=== PATIENT | male | born 1990 | race Caucasian/White ===

== ENCOUNTER 2016-12-30 00:19 | Observation (INO) ==
[2016-12-30] MEDS ORDERED: Ketorolac 30 MG/ML VIAL IVP ONE (01:21)
[2016-12-30 01:26] LABS: Basophils % 0.5 %; Eosinophils # 0.2 K/mcL (0.0-0.6); Eosinophils % 2.1 %; Hematocrit 44.7 % (37.5-50.1); Hemoglobin 15.2 g/dL (12.9-16.9); Immature Granulocytes % 0.4 % (0-4); Lymphocytes % 36.4 %; Mean Corpuscular Hemoglobin 30.3 pg (28.0-33.3); Mean Platelet Volume 12.1 fL (9.4-12.4); Monocytes # 0.4 K/mcL (0.0-1.3); Monocytes % 5.3 %; Neutrophils # 4.5 K/mcL (1.6-8.9); Platelet Count 175 K/mcL (140-400); Red Blood Count 5.02 M/mcL (4.19-5.50); Red Cell Distribution Width 12.6 % (11.5-14.5); Segmented Neutrophils % 55.3 %
[2016-12-30] MEDS ORDERED: Ketorolac 15 MG/ML VIAL ONE (01:33)
[2016-12-30 01:35] LABS: BUN/Creatinine Ratio 17 (6-26); Blood Urea Nitrogen 18 mg/dL (8-26); Calcium 9.3 mg/dL (8.6-10.8); Carbon Dioxide 27 mEq/L (19-29); Chloride 103 mEq/L (98-109); Glucose 102 mg/dL (70-99); Osmolality,Calculated 294 (280-300); Potassium 3.9 mEq/L (3.5-4.5); Sodium 141 mEq/L (136-145); eGFR For African Americans > 60 (> 60); eGFR For Non-African Americans > 60 (> 60)
--- NOTE | 2016-12-30 01:37 | Emergency Department Note ---
Disposition Clinical Impression: Appendicitis Disposition: Admitted As Inpatient Condition: Good Abdominal Pain HPI - General Chief Complaint: ED Abdominal Pain Stated Complaint: ABD Pain Time Seen by Provider: 12/30/16 00:54 Source: patient Mode of arrival: ambulatory Nursing Notes Reviewed: Yes Vital Signs Reviewed: Yes - History of Present Illness HPI Narrative: 26-year-old male with no pole or surgical history presents with 2 days of abdominal pain with nausea, vomiting, and diarrhea that remitted earlier today. He was seen in the emergency department yesterday for symptoms received 8 mg of Zofran with resolution of his nausea and vomiting and was sent home without further testing. He has had chills without fever. His pain was initially more diffuse, but now is more localized in the right lower quadrant and occasionally radiates into his groin. He does not have any back pain or flank pain. He has a poor appetite today. He has no sick contacts. He is not on any medicine at home other than Zofran. Pain Scale: 7 - Related Data Previous Rx's Medication Instructions Recorded Docusate [Colace] 100 mg PO BID #30 capsule 01/01/17 OxyCODONE/APAP 5/325 [Percocet 1 each PO Q4HR PRN #30 tablet 01/01/17 5/325 MG] Allergies Allergy/AdvReac Type Severity Reaction Status Date / Time Hydromorphone [From Dilaudid] Allergy Itching Verified 12/30/16 12:42 All systems ED: reviewed and negative except as stated. Abdominal Pain PMH - Past Medical History Medical history: Reports: no medical history, other Male Surgical History: Reports: orthopedic, other Psychiatric history: Reports: no psych history - Social History Smoking status: Current every day smoker Alcohol use: Reports: rarely Drug use: Reports: none Physical Exam - Head Head exam: atraumatic, normocephalic, normal inspection - Eye Eye exam: Present: normal appearance, PERRL, EOMI - ENT ENT exam: normal exam, normal oropharynx, mucous membranes moist - Neck Neck exam: Present: normal inspection, full ROM, trachea midline - Chest Chest inspection: Present: normal inspection, symmetric chest wall rise - Respiratory Respiratory exam: Clear to auscultation bilaterally without wheezes rales or rhonchi Cardiovascular Cardiovascular exam: Present: regular rate, normal rhythm, normal heart sounds - Abdominal Exam Abdomen is soft without rigidity or rebound tenderness. There is well localized right lower quadrant tenderness. Rovsing sign is negative. McBurney sign and obturator sign are positive. - Extremities Exam Extremities exam: Present: normal inspection, full ROM - Back Exam Back exam: Present: normal inspection, full ROM. Absent: tenderness, CVA tenderness (R), CVA tenderness (L) - Neurological Exam Neurological exam: Present: alert, oriented X3, CN II-XII intact - Psychiatric Psychiatric exam: Present: normal affect, normal mood - Skin Skin exam: Present: warm, dry, intact, normal color - General Limitations: no limitations General appearance: alert, in no apparent distress Course - Reevaluation(s) Reevaluation #1: Equivocal CT scan for appendicitis. Patient will need observation and further evaluation. Accepted by Dr. Guzman for further management. Vital Signs Temperature 98.0 F 12/30/16 00:27 Pulse Rate 67 12/30/16 00:27 Respiratory Rate 18 12/30/16 00:27 Blood Pressure 108/69 12/30/16 00:27 O2 Sat by Pulse Oximetry 96 12/30/16 00:27 Temperature 97.8 F 01/01/17 11:05 Pulse Rate 59 01/01/17 12:37 Respiratory Rate 14 01/01/17 12:37 Blood Pressure 116/75 01/01/17 12:37 O2 Sat by Pulse Oximetry 96 01/01/17 12:37 Oxygen Delivery Oxygen Delivery Room Air Abdominal Pain - Lab Data Result diagrams: 01/01/17 03:53 12/30/16 00:50 Lab Results 12/30/16 12/30/16 Range/Units 00:50 00:50 WBC 8.2 (4.3-11.1) K/mcL RBC 5.02 (4.19-5.50) M/mcL Hgb 15.2 (12.9-16.9) g/dL Hct 44.7 (37.5-50.1) % MCV 89.0 (83.0-100.0) fL MCH 30.3 (28.0-33.3) pg MCHC 34.0 (31.6-35.5) g/dL RDW 12.6 (11.5-14.5) % Plt Count 175 (140-400) K/mcL MPV 12.1 (9.4-12.4) fL Immature Gran % 0.4 (0-4) % Seg Neutrophils % 55.3 % Lymphocytes % 36.4 % Monocytes % 5.3 % Eosinophils % 2.1 % Basophils % 0.5 % Neutrophils # 4.5 (1.6-8.9) K/mcL Lymphocytes # 3.0 (0.6-4.6) K/mcL Monocytes # 0.4 (0.0-1.3) K/mcL Eosinophils # 0.2 (0.0-0.6) K/mcL Basophils # 0.0 (0.0-0.2) K/mcL Sodium 141 (136-145) mEq/L Potassium 3.9 (3.5-4.5) mEq/L Chloride 103 (98-109) mEq/L Carbon Dioxide 27 (19-29) mEq/L BUN 18 (8-26) mg/dL Creatinine 1.03 (0.72-1.25) mg/dL Est GFR ( Amer) > 60 (> 60) Est GFR (Non-Af Amer) > 60 (> 60) BUN/Creatinine Ratio 17 (6-26) Glucose 102 H (70-99) mg/dL Calculated Osmolality 294 (280-300) Calcium 9.3 (8.6-10.8) mg/dL Attestation Statement - Attestation Attestation: I examined this patient and my medical decision-making was reviewed with the Resident Physician. I agree with the documented findings, disposition and treatment plan as described except to the extent set forth below. Significant difference in exam compared to my prior evaluation. Now has marked tenderness, most prominent in RLQ. On last eval, he had no tenderness, had some crampy discomfort that started well after onset of vomiting and diarrhea. Now looks somewhat ill but non-toxic, marked change in abdominal exam. CT equivocal. Discussed with surgeon. Atypical story for appendicitis, concerning exam, equivocal CT. I recommended admission and observation, evaluation by surgeon in AM and serial exams as opposed to going to the OR now, surgeon agreed.
[2016-12-30] MEDS ORDERED: Ketorolac 30 MG/ML VIAL ONE (01:38)
[2016-12-30] MEDS ORDERED: *HR* Morphine 2 MG/ML SYRINGE IVP STA (01:58)
[2016-12-30] MEDS ORDERED: Ondansetron 4 MG/2 ML VIAL IVP STA (01:59)
[2016-12-30] MEDS ORDERED: *HR* Morphine 2 MG/ML SYRINGE ONE (02:05)
[2016-12-30] MEDS ORDERED: Ondansetron 4 MG/2 ML VIAL ONE (02:05)
[2016-12-30] MEDS ORDERED: cefOXitin 2,000 MG in D5% in Water (Mini-Bag+) 100 ML IVPB ONE (03:22)
[2016-12-30] MEDS ORDERED: 0.9 % Sodium Chloride 2,000 ML IVC ONE (03:23)
[2016-12-30] MEDS ORDERED: *HR* HYDROmorphone 2 MG/ML SYRINGE IVP PRN (04:50)
[2016-12-30] MEDS ORDERED: Ondansetron 4 MG/2 ML VIAL IVP PRN (05:23)
[2016-12-30] MEDS: 0.9 % Sodium Chloride 1,000 ML IVC SCH ×2 (05:33→19:37)
[2016-12-30] MEDS ORDERED: Ondansetron 4 MG/2 ML VIAL IVP SCH (08:00)
--- NOTE | 2016-12-30 10:31 | General Surg History&Physical ---
Date of Encounter: 12/30/16 Time of Encounter: 10:00 Assessment and Plan (1) Abdominal pain Current Visit: Yes Status: Acute The assessment and plan as outlined above was discussed with the patient and/or family members who expressed understanding and agreement. All questions were answered. RLQ abdominal pain of uncertain etiology CT shows dilated appendix without surrounding inflammation Will review with Dr. Guzman and discuss plan moving forward NPO IV fluids Supportive care/pain control Serial abdominal exams Qualifiers: Abdominal location: right lower quadrant Qualified Code(s): R10.31 - Right lower quadrant pain (2) Tobacco abuse Current Visit: Yes Status: Acute The assessment and plan as outlined above was discussed with the patient and/or family members who expressed understanding and agreement. All questions were answered. Smoking cessation education Offered nicotine patch- patient states that they break him out (3) DVT prophylaxis Current Visit: Yes Status: Acute The assessment and plan as outlined above was discussed with the patient and/or family members who expressed understanding and agreement. All questions were answered. Ambulate hallways TID History of Present Illness Chief complaint: Abdominal pain HPI: Mr. Mae is a 26 year old male with no significant past medical history. He states that he initially has diarrhea with associated nausea/vomiting 2 days ago. He reports multiple episodes of vomiting without hematemesis of coffee ground emesis. He reported to the ED and was evaluated and released. He states that he had onset of RLQ abdominal pain yesterday which was constant. The pain does radiate into his groin at times. He has never experienced pain like this in the past. He does not have an appetite. Denies any fevers/chills. Denies any difficulty with urination. Denies any chest pain or shortness of breath. He has had a CT scan which shows dilation of the appendix without surrounding inflammatory changes. We have admitted the patient for further work-up and treatment. Past Med Surg Social Fam HX - Past Medical History Source: patient Medical history: no medical history, other Psychiatric history: no psych history - Past Surgical History Surgical History: other (left knee surgery) - Social History Smoking Status: Current every day smoker Packs per day: 1PPD Smokeless Tobacco Status: No Alcohol use: rarely Drug use: none Current living situation: Home - Independent Activity Level: Independent ambulation - Family History Mother History Unknown: Yes Adopted: [place]: Enrike Hwang Jr Age: 51 Family Member Ethnicity: Non- Living Status: Still Living Hx Family Cardiac Disorders: No Hx Family Respiratory Disorders: No Hx Family Cancer: No Hx Family GI Disorders: No Hx Family Genitourinary Disorders: No Hx Family Endocrine Disorder: Yes (Both sides of family) Hx Family Musculoskeletal Disorders: Yes (Artheritis carple tunnel on Father's side.) Hx Family Neuromuscular Disorders: No Hx Family Neurologic Disorders: No Hx Family HEENT Disorders: No Hx Family Autoimmune Disorders: No Hx Family Reproductive Disorders: No Hx Family Psychosocial Disorders: Yes (Father's side) Father History Unknown: Yes Adopted: [place]: Enrike Hwang Jr Age: 51 Family Member Ethnicity: Non- Living Status: Still Living Hx Family Cardiac Disorders: No Hx Family Respiratory Disorders: No Hx Family Cancer: No Hx Family GI Disorders: No Hx Family Genitourinary Disorders: No Hx Family Endocrine Disorder: Yes (Both sides of family) Hx Family Musculoskeletal Disorders: Yes (Artheritis carple tunnel on Father's side.) Hx Family Neuromuscular Disorders: No Hx Family Neurologic Disorders: No Hx Family HEENT Disorders: No Hx Family Autoimmune Disorders: No Hx Family Reproductive Disorders: No Hx Family Psychosocial Disorders: Yes (Father's side) Medications and Allergies No Known Home Drugs 12/30/16 [History] Allergies No Known Allergies Allergy (Verified 12/30/16 00:27) Review of Systems All systems PM: reviewed and no additional remarkable complaints except as stated (in the HPI) All systems PM: A 10-system review of systems was performed and is negative for pertinent findings except as documented above in the HPI. General Surgery Exam Initial Vital Signs Temp Pulse Resp BP Pulse Ox 98.0 F 67 18 108/69 96 12/30/16 00:27 12/30/16 00:27 12/30/16 00:27 12/30/16 00:27 12/30/16 00:27 Results - Labs 12/30/16 00:50 12/30/16 00:50 Abnormal lab results Glucose 102 mg/dL (70-99) H 12/30/16 00:50 All other labs normal. - Imaging CT scan - abdomen: report reviewed CT scan - pelvis: report reviewed Additional studies: Abdomen/Pelvis CT 12/30/16 01:20 IMPRESSION: The appendix is retrocecal and dilated though there is no definite inflammatory stranding. Early/mild appendicitis cannot be excluded. D/ / Dagoberto Bunch MD / Dagoberto Bunch MD Interpreting Provider: Dagoberto Bunch MD - Attending Attestation I examined this patient and my medical decision-making was reviewed with the FIELD CASE MANAGER/PA/Advanced Practice Nurse/Resident Physician. I agree with the documented findings, disposition and treatment plan as described except to the extent set forth below.
[2016-12-30] MEDS ORDERED: Naloxone 0.4 MG/ML INJ IVP PRN (10:37)
[2016-12-30] MEDS ORDERED: *HR* HYDROmorphone (PF) 1 MG/ML SYRINGE IVP PRN (10:38)
[2016-12-30] MEDS: cefOXitin 2,000 MG in D5% in Water (Mini-Bag+) 100 ML IVPB SCH (15:21)
[2016-12-30] MEDS: *HR* OxyCODONE/APAP 5/325 TABLET PO PRN (19:37)
[2016-12-30] MEDS: *HR* HYDROmorphone (PF) 1 MG/ML SYRINGE IVP PRN (21:43)
[2016-12-31] MEDS: cefOXitin 2,000 MG in D5% in Water (Mini-Bag+) 100 ML IVPB SCH ×4 (01:25→23:23)
[2016-12-31] MEDS: 0.9 % Sodium Chloride 1,000 ML IVC SCH (08:25)
--- NOTE | 2016-12-31 09:11 | General Surgery Progress Note ---
<Layo Stout - Last Filed: 12/31/16 11:34> Date of Encounter: 12/31/16 Time of Encounter: 08:30 - Assessment and Plan (1) Abdominal pain Current Visit: Yes Status: Acute RLQ pain secondary to appendicitis. Dr. Sellers called radiology to have a second read of the imaging, which was read as being appendicitis. Continue regular diet. Continue IV cefoxitin Day #2 Continue IV fluids. Pain and nausea control as needed. Qualifiers: Abdominal location: right lower quadrant Qualified Code(s): R10.31 - Right lower quadrant pain (2) Tobacco abuse Current Visit: Yes Status: Acute Patient denied wanting patches. (3) DVT prophylaxis Current Visit: Yes Status: Acute Ambulate halls TID Subjective Patient reports: no new complaints, voiding w/o difficulty, flatus, no bowel movement Narrative: The patient reports that he is no longer having diarrhea, and has not had any bowel movements in the last 2 days. He is tolerating a regular diet will and did not report any nausea or vomiting during his dinner last night, which is when he last ate. He states he is not having any pain at this time. Objective Vital Signs - Last 8 Hours Temp Pulse Resp BP Pulse Ox 12/31/16 07:00 96 12/31/16 06:45 97.6 F 58 16 101/65 96 12/31/16 03:39 97.7 F 49 17 96/60 96 Intake and Output 12/30/16 12/31/16 12/31/16 23:59 07:59 15:59 Intake Total 1100 / 1100 100 / 100 1000 / 1000 Balance 1100 / 1100 100 / 100 1000 / 1000 Intake: IV Fluids 1100 / 1100 100 / 100 1000 / 1000 0.9 % Sodium Chloride 1, 1000 / 1000 1000 / 1000 000 ML @ 70 mls/hr IVC . [id number] ADDIE Rx#: [id number] Mefoxin 2,000 MG In 100 / 100 100 / 100 Dextrose 5% (Minibag+) 100 ML 100 ML @ 200 mls/ hr IVPB Q8HR ADDIE Rx#: [id number] Other: Weight 75.75 kg Patient Weight 12/31/16 23:59 Weight 75.75 kg - General physical appearance well developed, well nourished, no distress - Eyes normal ocular movement - ENT normal mucosa, atraumatic, normocephalic - Neck Neck exam: trachea midline - Respiratory normal respiratory effort, clear to auscultation - Cardiovascular Cardiovascular exam: Present: RRR - Abdomen Abdomen: Present: bowel sounds present, soft Abdominal Tenderness: RLQ (tenderness to moderate palpation without guarding or rebound.) - Integumentary no rash - Neurologic CN 2-12 grossly intact - Musculoskeletal normal posture - Psychiatric oriented to time, oriented to person, oriented to place, speech is normal, memory intact - Labs 12/30/16 00:50 12/30/16 00:50 Consult Discharge Plan - Plan Referrals: NO,PCP [Primary Care Provider] - - Attending Attestation I examined this patient and my medical decision-making was reviewed with the WATCH AND CLOCK REPAIR CLERK/PA/Advanced Practice Nurse/Resident Physician. I agree with the documented findings, disposition and treatment plan as described except to the extent set forth below. <Colette Sellers - Last Filed: 12/31/16 12:36> Date of Encounter: 12/31/16 Time of Encounter: 12:00 - Assessment and Plan (1) Abdominal pain Current Visit: Yes Status: Acute patients pain is improving, even if he had an appendicitis it can be treated and resolved with abx he only had diarrhea wed and no further bms since then he denies nausea, abdominal pain almost resolved, significantly improved he isnt eating much due to concern that he will get crampy pain, we discussed him eating his regular lunch and seeing what happens, if tolerates will dc with abx and f/u with Dr Guzman in 2 weeks. Qualifiers: Abdominal location: right lower quadrant Qualified Code(s): R10.31 - Right lower quadrant pain (2) Tobacco abuse Current Visit: Yes Status: Acute (3) Diarrhea Current Visit: No Status: Acute check stool culture Qualifiers: Diarrhea type: unspecified type Qualified Code(s): R19.7 - Diarrhea, unspecified (4) Nausea & vomiting Current Visit: No Status: Resolved prn antiemetics,currently no issues Qualifiers: Vomiting type: unspecified Vomiting Intractability: unspecified Qualified Code(s): R11.2 - Nausea with vomiting, unspecified Subjective Narrative: pain is improved but still present, no nausea or emesis. no diarrhea since wed, no bm since wed pt states hasnt eaten much because he is afraid to get the crampy abdominal pain Objective Vital Signs - Last 8 Hours Temp Pulse Resp BP Pulse Ox 12/31/16 11:20 97.8 F 67 16 101/63 97 12/31/16 07:00 96 12/31/16 06:45 97.6 F 58 16 101/65 96 Intake and Output 12/30/16 12/31/16 12/31/16 23:59 07:59 15:59 Intake Total 1100 / 1100 100 / 100 1000 / 1000 Balance 1100 / 1100 100 / 100 1000 / 1000 Intake: IV Fluids 1100 / 1100 100 / 100 1000 / 1000 0.9 % Sodium Chloride 1, 1000 / 1000 1000 / 1000 000 ML @ 70 mls/hr IVC . [id number] ADDIE Rx#: [id number] Mefoxin 2,000 MG In 100 / 100 100 / 100 Dextrose 5% (Minibag+) 100 ML 100 ML @ 200 mls/ hr IVPB Q8HR ADDIE Rx#: [id number] Other: Weight 75.75 kg Patient Weight 12/31/16 23:59 Weight 75.75 kg - General physical appearance well developed, well nourished, no distress - Eyes PERRL, normal ocular movement - ENT normal mucosa, normocephalic - Neck Neck exam: trachea midline - Respiratory normal expansion - Cardiovascular Cardiovascular exam: Present: RRR - Abdomen Abdomen: Present: soft, tender. Absent: distended, guarding, rebound Abdominal Tenderness: RLQ - Integumentary no rash, no growths - Neurologic CN 2-12 grossly intact - Musculoskeletal normal posture - Psychiatric oriented to time, oriented to person, memory intact - Labs 12/30/16 00:50 12/30/16 00:50
[2016-12-31] MEDS: *HR* OxyCODONE/APAP 5/325 TABLET PO PRN ×2 (13:53→20:47)
[2016-12-31] MEDS: *HR* HYDROmorphone (PF) 1 MG/ML SYRINGE IVP PRN ×2 (17:18→22:33)
[2016-12-31] MEDS ORDERED: Pantoprazole 40 MG VIAL IVP SCH (17:45)
[2017-01-01] MEDS: *HR* HYDROmorphone (PF) 1 MG/ML SYRINGE IVP PRN (01:21)
[2017-01-01] MEDS: 0.9 % Sodium Chloride 1,000 ML IVC SCH (01:50)
[2017-01-01 04:24] LABS: Basophils % 0.6 %; Eosinophils # 0.2 K/mcL (0.0-0.6); Hematocrit 38.5 % (37.5-50.1); Immature Granulocytes % 0.2 % (0-4); Lymphocytes # 2.7 K/mcL (0.6-4.6); Lymphocytes % 40.7 %; Mean Corpuscular HGB Conc 33.8 g/dL (31.6-35.5); Mean Corpuscular Volume 91.7 fL (83.0-100.0); Mean Platelet Volume 11.8 fL (9.4-12.4); Monocytes # 0.5 K/mcL (0.0-1.3); Monocytes % 7.1 %; Neutrophils # 3.2 K/mcL (1.6-8.9); Platelet Count 142 K/mcL (140-400); Red Cell Distribution Width 12.5 % (11.5-14.5); Segmented Neutrophils % 48.4 %
[2017-01-01] MEDS ORDERED: CefOXitin 1,000 MG VIAL ONE (07:15)
[2017-01-01] MEDS ORDERED: Albuterol 2.5 MG/3 ML NEBULIZER IH ONE (07:15)
--- NOTE | 2017-01-01 07:18 | Anesthesia Evaluation PreOp ---
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 Any Significant HX Other Medical History: Denies Any Significant HX Anesthesia History: No Prior Anesthetic Complications Alcohol Use: rarely Drug use: none Medications and Allergies No Known Home Drugs 12/30/16 [History] Allergies Hydromorphone [From Dilaudid] Allergy (Verified 12/30/16 12:42) Itching - Meds/Allergy Pre-op Review Medications Reviewed: Yes Allergies Reviewed: Yes Beta Blockers on Current Med List: No Anesthesia Results - Labs 01/01/17 03:53 12/30/16 00:50 Anesthesia Exam O2 Sat Weight 76.2 kg O2 Sat by Pulse Oximetry 97 O2 Sat by Pulse Oximetry 97 O2 Sat by Pulse Oximetry 97 O2 Sat by Pulse Oximetry 97 O2 Sat by Pulse Oximetry 97 O2 Sat by Pulse Oximetry 97 Vital Signs Temp Pulse Resp BP Pulse Ox 98.0 F 67 18 108/69 96 12/30/16 00:27 12/30/16 00:27 12/30/16 00:27 12/30/16 00:27 12/30/16 00:27 Height: 5'8 Weight: 167 lbs NPO (# of Hours): MN Pain Scale: 1 - HEENT Mallampati: II Teeth: Normal Oral Opening: Greater than 3 - GENERAL ENGINEERING TEACHER LOC: Oriented GENERAL ENGINEERING TEACHER Motor: Normal RUE, Normal LUE, Normal RLE, Normal LLE, Normal Face GENERAL ENGINEERING TEACHER Sensory: Normal: RUE, LUE, RLE, LLE, Face - Cardiac Rhythm: Regular Murmur: None JVD: No Carotid Bruit: No - Pulmonary Breath Sounds: bilateral Clear Respiratory Effort: Symmetrical Anesthesia Assess/Plan ASA Score: 2 Modified [place] Scale for Level of Consciousness: Cooperative, oriented, and tranquil Anesthetic Plan: General Monitoring Plan: Standard Monitors Recovery Plan: PACU (Discussed GA, agrees to proceed)
[2017-01-01] MEDS ORDERED: Dexamethasone 4 MG/ML VIAL ONE (07:24)
[2017-01-01] MEDS ORDERED: *HR* Propofol 200 MG/20 ML VIAL IVP ONE ×2 (07:24→08:42)
[2017-01-01] MEDS ORDERED: *HR* Midazolam HCl 2 MG/2 ML VIAL ONE (07:24)
[2017-01-01] MEDS ORDERED: *HR* Rocuronium Bromide 50 MG/5 ML VIAL ONE (07:24)
[2017-01-01] MEDS ORDERED: Lidocaine -MPF 2% 2 ML VIAL ONE (07:24)
[2017-01-01] MEDS ORDERED: *HR* FentaNYL (PF) 100 MCG/2 ML VIAL ONE ×2 (07:24→08:41)
[2017-01-01] MEDS ORDERED: Ondansetron 4 MG/2 ML VIAL ONE ×2 (07:24→09:30)
[2017-01-01] MEDS ORDERED: Lidocaine -MPF 4% 5 ML AMPUL ONE (07:26)
[2017-01-01] MEDS ORDERED: CefOXitin 2,000 MG VIAL IVPB ONE (08:14)
[2017-01-01] MEDS: cefOXitin 2,000 MG in D5% in Water (Mini-Bag+) 100 ML IVPB SCH (08:30)
[2017-01-01] MEDS ORDERED: Neostigmine Methylsulfate 3 MG/3 ML SYRINGE ONE (08:57)
[2017-01-01] MEDS ORDERED: *HR* HYDROmorphone (PF) 1 MG/ML SYRINGE IVP PRN (09:02)
[2017-01-01] MEDS ORDERED: Ketorolac 30 MG/ML VIAL ONE (09:04)
--- NOTE | 2017-01-01 09:12 | Operative Note ---
Date of procedure: 01/01/17 Pre-op diagnosis: Acute appendicitis Post-op diagnosis: same Procedure: Laparoscopic appendectomy Complications: none immediate Anesthesia: GETA, local Local Anesthetics: 0.5% Sensorcaine HCL SubQ (cc) (30) Surgeon: Colette Sellers Estimated blood loss (cc): 3 Specimen: appendix Condition: stable Disposition: PACU Procedure in Detail: The patient was brought into the operating suite and placed supine on the operating table. Sign-in was performed and everyone was in agreement. Anesthesia was induced and patient was endotracheally intubated by anesthesia without incident. An OG tube was placed by anesthesia. A Abreu catheter was placed by the circulating nurse. The abdomen was prepped and draped in the usual sterile fashion. A timeout was performed and again everyone was in agreement. A supraumbilical incision was made through the skin and the subcutaneous tissue with an 11 blade. Towel clamps were placed on either side of the umbilicus for retraction. S-retractors were used to dissect down to the anterior abdominal wall linea alba fascia. A Veress needle was placed into this incision and a water drop test confirmed placement and the abdomen was insufflated. We then entered the abdomen with the 5 mm 0 degree laparoscope on a 5 mm Optiview trocar. The area under entry was visualized and there was no bleeding and no apparent bowel injury. We placed a suprapubic 5 mm port under direct visualization after first incising the skin with an 11 blade. The laparoscope was placed through this and we exchanged the supraumbilical port for a 12 mm port under direct visualization. We then placed another 5 mm port in the left lower quadrant position under direct visualization after first incising the skin with an 11 blade. The patient was placed in slight Trendelenburg left side down position. The cecum was located as was the appendix. The appendix was grasped and retracted anteriorly and caudally with a laparoscopic Jorge. A [place] was used to dissect between the mesoappendix and the appendix at the base of the cecum. The mesoappendix was transected with a laparoscopic flex-ex ETS stapler using a white load. The appendix was transected at the base of the cecum with the same stapler utilizing a blee load. The appendix was placed in a laparoscopic Endo Catch bag and removed via the supraumbilical incision site. Both staple lines were evaluated and there was no bleeding and both staple lines were intact. The area was irrigated with sterile saline which was then suctioned free from the abdomen. The insufflation was suctioned free from the abdomen and all trochars removed. We closed the abdominal wall at the supraumbilical incision site with an 0 Vicryl [id number] stitch. A 30 cc of 0.5% Marcaine was injected subcutaneously at the 3 port sites. The skin at the two 5 mm port sites was closed with 4-0 Monocryl interrupted subcuticular stitches. The skin at the supraumbilical incision site was closed with a 4-0 Monocryl running subcuticular stitch. Steri-Strips were applied to the wounds. The Abreu catheter was removed. The patient was extubated in the OR and tolerated the procedure well and was taken to PACU after all lap and instrument counts were correct at the end of the case.
--- NOTE | 2017-01-01 09:15 | Discharge Summary ---
<Colette Sellers - Last Filed: 01/02/17 08:47> Date of Encounter: 01/02/17 Time of Encounter: 14:00 - Discharge Diagnosis (1) Abdominal pain Priority: Primary Status: Acute Qualifiers: Abdominal location: right lower quadrant Qualified Code(s): R10.31 - Right lower quadrant pain (2) Tobacco abuse Priority: Secondary Status: Acute (3) Diarrhea Priority: Secondary Status: Acute Qualifiers: Diarrhea type: unspecified type Qualified Code(s): R19.7 - Diarrhea, unspecified (4) Acute appendicitis Status: Acute - Discharge Medications Prescriptions: OxyCODONE/APAP 5/325 [Percocet 5/325 MG] 1 each PO Q4HR PRN #30 tablet PRN Reason: Pain Docusate [Colace] 100 mg PO BID #30 capsule Home Medications: Docusate [Colace] 100 mg PO BID #30 capsule 01/01/17 [Rx] OxyCODONE/APAP 5/325 [Percocet 5/325 MG] 1 each PO Q4HR PRN #30 tablet 01/01/17 [Rx] Allergies/Adverse Reactions: Allergies Hydromorphone [From Dilaudid] Allergy (Verified 12/30/16 12:42) Itching General Surgery Exam Initial Vital Signs Temp Pulse Resp BP Pulse Ox 98.0 F 67 18 108/69 96 12/30/16 00:27 12/30/16 00:27 12/30/16 00:27 12/30/16 00:27 12/30/16 00:27 - General physical appearance well developed, well nourished, no distress - Eyes PERRL, normal ocular movement - ENT normal mucosa, normocephalic - Neck trachea midline - Respiratory normal expansion, clear to auscultation - Cardiovascular Cardiovascular exam: Present: RRR - Abdomen Abdomen general surgery: Present: bowel sounds present, soft, tender ( appropriate post op tenderness) - Incision Incision: Present: clean and dry, intact - Integumentary Integumentary general surgery: Present: warm and dry, no abnormal pigmentation - Neurologic Present: CN 2-12 grossly intact - Musculoskeletal Present: normal gait, normal posture - Psychiatric Psychiatric general surgery: Present: A&Ox3, speech is normal Date of admission: 12/30/16 03:51 Primary care physician: PCP NO Discharging clinician: Colette Sellers Anticipated date of discharge: 01/01/17 - Patient Status Disposition: Home, Self-Care Condition: Good Overall status at discharge: patient is progressing back to baseline - Discharge Instructions Instructions: Laparoscopic Appendectomy (DC) Follow Up With: DUSTIN,PCP [Primary Care Provider] - Colette Sellers MD [Partnered Physician] - (or Elsie Johansen in 2 weeks for post op check) Forms: Work/School Release Additional Instructions: No lifting more than 20 pounds for 2 weeks. Okay to take a shower in 24 hours. No tub baths or pools for 1 week. Okay to ride in the car wearing a seatbelt and climb steps. No driving until off narcotics for 24 hours and able to react safely Remove Steri-Strips in 1 week. Follow-up appointments: If there is not an appointment listed below, please call your physician and schedule a follow-up appointment. If you have congestive heart failure and your symptoms return, make an appointment with your physician. Symptoms: If your condition changes or you experience any of the following symptoms, notify your physician immediately: Unusual or worsening pain, fever, persistent nausea and vomiting, bleeding, increase in swelling (especially in your legs), sudden weight gain, extreme dizziness, chest pain, increased drainage or redness from a wound or incision. Go to the emergency department if you experience a problem with breathing. Weights: If you have a history of swelling or shortness of breath, weigh yourself daily and notify your physician if you have a weight gain of two or more pounds in one day or 5 or more pounds in a week. If you experience any of the warning signs for stroke: Sudden numbness or weakness of the face, arm or leg; especially on one side of the body, sudden confusion, trouble speaking or understanding, sudden trouble seeing in one or both eyes, sudden trouble walking, dizziness, loss of balance or coordination, sudden sever headache with no cause; Call 911 or go to the emergency room. Stroke is a medical emergency. Some risk factors for stroke: Age, cigarette smoking, diabetes, excessive alcohol consumption, family history , high blood pressure, overweight, physical inactivity, prior stroke, heart attack, diagnosis of carotid artery stenosis or other artery disease. If you smoke, STOP: Smoking or tobacco use significantly increases your risk of heart and lung disease. Your chance of disease greatly increases if you continue to smoke. For more information, call the [place] tobacco quit line for smoking cessation 1-677- QUIT-NOW ( ) - Diet and Activity Activity: increase activity as tolerated Diet: advance to your usual diet - Hospital Course Hospital course: Mr. Mae is a 26 year old male who came in with 1 day history of diarrhea, nausea, dry heaves, and right lower quadrant pain. Patient was initially thought to have a gastroenteritis and was treated with conservative management and IV antibiotics. He symptomatically did not improve. I reviewed his CT scan with another radiologist to thought he had likely an acute tip appendicitis. This was discussed with the patient. He went to the operating room on 01/01/2017 for an uncomplicated laparoscopic appendectomy. Postoperatively the patient began tolerating clears and his diet was advanced. His pain was controlled with by mouth pain medication. He was up involuting well and having appropriate bowel function. He was discharged home in stable condition. - Time Spent with Patient Total time spent providing and/or coordinating discharge services: Labs on day of discharge: Labs from last 24 hours 01/01/17 03:53 WBC 6.6 RBC 4.20 Hgb 13.0 D Hct 38.5 MCV 91.7 MCH 31.0 MCHC 33.8 RDW 12.5 Plt Count 142 MPV 11.8 Immature Gran % 0.2 Seg Neutrophils % 48.4 Lymphocytes % 40.7 Monocytes % 7.1 Eosinophils % 3.0 Basophils % 0.6 Neutrophils # 3.2 Lymphocytes # 2.7 Monocytes # 0.5 Eosinophils # 0.2 Basophils # 0.0 - Attending Attestation I examined this patient and my medical decision-making was reviewed with the [employer] TENDER/PA/Advanced Practice Nurse/Resident Physician. I agree with the documented findings, disposition and treatment plan as described except to the extent set forth below. <Layo Stout - Last Filed: 01/02/17 14:22> - Discharge Diagnosis (1) Abdominal pain Status: Acute Qualifiers: Abdominal location: right lower quadrant Qualified Code(s): R10.31 - Right lower quadrant pain (2) Tobacco abuse Status: Acute (3) DVT prophylaxis Status: Acute General Surgery Exam Initial Vital Signs Temp Pulse Resp BP Pulse Ox 98.0 F 67 18 108/69 96 12/30/16 00:27 02/24/17 00:27 12/30/16 00:27 12/30/16 00:27 12/30/16 00:27 Date of admission: 12/30/16 03:51 Primary care physician: PCP NO - Patient Status Overall status at discharge: patient is progressing back to baseline - Diet and Activity Activity: increase activity as tolerated Diet: advance to your usual diet - Hospital Course Hospital course: Mr. Mae is a 26 year old male - Time Spent with Patient Total time spent providing and/or coordinating discharge services:
--- NOTE | 2017-01-01 09:48 | Anesthesia Evaluation Post Op ---
Date of Encounter: 01/01/17 Time of Encounter: 09:50 - Vital Signs Vital Signs: Vital Signs/O2 Sat/Glucose, Most Current Temp Pulse Resp BP Pulse Ox 01/01/17 09:36 64 16 147/92 96 01/01/17 09:26 69 14 136/91 98 01/01/17 09:16 97.5 F L 53 10 119/72 98 01/01/17 06:59 97.6 F 57 93/54 97 - Lungs Lungs: Clear Ascult./Percussion - Airway Airway: Non-obstructed - Cardiovascular Regular Rate - Mental Status Mental Status: Alert & Oriented, Answers Appropriately - Pain Pain Scale: 2 - Nausea Vomiting Nausea Vomiting: Not Present - Hydration Hydration: NPO - Discharge PostOp Status: Transfer Patient to floor
[2017-01-01] MEDS ORDERED: Naloxone 0.4 MG/ML INJ IVP PRN (10:14)
[2017-01-01] MEDS ORDERED: *HR* OxyCODONE/APAP 5/325 TABLET PO PRN (10:14)
[2017-01-01] MEDS ORDERED: 0.9 % Sodium Chloride 1,000 ML IVC SCH (10:14)
[2017-01-01] MEDS ORDERED: Ondansetron 4 MG/2 ML VIAL IVP PRN (10:14)
[2017-01-01] MEDS ORDERED: *HR* Morphine 2 MG/ML SYRINGE IVP PRN (11:56)
[2017-01-01 12:39] VITALS: BP 116/75
== END 2017-01-01 14:32 | disposition home or self-care (01) ==
LOC: EMEROO 00:19 → 3BNU 00:19
PROVIDERS: ADMIT Surgery; ATTEND Surgery